=== PATIENT | female | born 1950 | race Caucasian/White ===

== ENCOUNTER 2023-10-02 17:46 | Inpatient (IN) | payer MEDICARE, OTHER ==
[~2023-10-02] VITALS: Ht 162.6 cm; Wt 70.3 kg
[2023-10-02] MEDS ORDERED: DULA1.5P SQ (17:59)
[2023-10-02] MEDS ORDERED: DOXY-326 PO (17:59)
[2023-10-02] MEDS ORDERED: ESTR42.511 VG (17:59)
[2023-10-02] MEDS ORDERED: LANS30CA56 PO (17:59)
[2023-10-02] MEDS ORDERED: ATOR40TA PO (17:59)
[2023-10-02 19:26] LABS: BASOPHILS # (AUTO) 0.1 K/UL (0.0-0.2); BASOPHILS % (AUTO) 0.6 % (0.0-2.0); HEMOGLOBIN 11.7 g/dL (10.9-14.3); LYMPHOCYTES # (AUTO) 1.7 K/uL (0.8-4.8); LYMPHOCYTES % (AUTO) 10.5 % (20.5-51.5); MEAN CORPUSCULAR HEMOGLOBIN 25.7 uug (24.7-32.8); MEAN CORPUSCULAR HGB CONC 32 g/dL (32.3-35.6); MEAN CORPUSCULAR VOLUME 80.8 fL (75.5-95.3); MONOCYTES # (AUTO) 1.2 K/uL (0.1-1.30); MONOCYTES % (AUTO) 7.5 % (0.0-11.0); NEUTROPHILS # (AUTO) 12.8 K/uL (1.8-8.9); NEUTROPHILS % (AUTO) 81.4 % (38.5-71.5); PLATELET COUNT (AUTO) 325 K/uL (179-408); RED BLOOD CELL COUNT(AUTO) 4.57 MIL/uL (3.63-4.92); RED CELL DISTRIBUTION WIDTH 15.9 % (12.3-17.7); WHITE BLOOD COUNT (AUTO) 15.7 K/uL (3.8-11.8)
[2023-10-02 19:32] LABS: DIFFERENTIAL COMMENT 1
[2023-10-02 19:36] LABS: CALCIUM 9.1 mg/dL (8.5-10.1); CARBON DIOXIDE 26 mmol/L (21-32); CHLORIDE 96 mmol/L (98-107); CREATININE 1.4 mg/dL (0.6-1.3); GLUCOSE 312 mg/dL (74-106); POTASSIUM 4.5 mmol/L (3.5-5.1); SODIUM SERUM 132 mmol/L (136-145); UREA NITROGEN, BLOOD 27 mg/dL (7-18)
[2023-10-02] MEDS ORDERED: CEFEPIME HCL 1 G VIAL ONE (19:44)
[2023-10-02 19:45] LABS: ALANINE AMINOTRANSFERASE 8 U/L (14-59); ALBUMIN 2.9 g/dL (3.4-5.0); ALKALINE PHOSPHATASE 110 U/L (50-136); ASPARTATE AMINOTRANSFERASE < 5 U/L (15-37); BILIRUBIN,DIRECT 0.1 mg/dL (0.0-0.2); BILIRUBIN,TOTAL 0.5 mg/dL (0.2-1.0); TOTAL PROTEIN, SERUM 7.8 g/dL (6.4-8.2)
[2023-10-02] MEDS: CEFEPIME HCL 1 G in IV DEXTROSE 5% 50 ML IV ONE (20:05)
[2023-10-02] MEDS: IV NORMAL SALINE 1000 ML BAG IV ONE (20:05)
[2023-10-02] MEDS ORDERED: VANCOMYCIN IV 200 ML ONE (20:18)
[2023-10-02] MEDS: VANCOMYCIN IV 1,000 MG in IV DEXTROSE 5% 250 ML IV ONE (20:24)
[2023-10-02 21:06] LABS: *BILIRUBIN,URIN NEGATIVE (NEGATIVE); *BLOOD, URINE 2+ (NEGATIVE); *CLARITY,URINE CLOUDY (CLEAR); *COLOR,URINE YELLOW (YELLOW); *KETONES,URINE TRACE (NEGATIVE); *PROTEIN,URINE 2+ (NEGATIVE); *UROBILINOGEN,URINE 0.2 E.U./dl (NORMAL); LEUKOCYTE ESTERASE ,URINE 1+ (NEGATIVE); NITRITE, URINE NEGATIVE (NEGATIVE); UGLUCOSE TRACE (NEGATIVE)
[2023-10-02] MEDS ORDERED: ONDANSETRON 4 MG/2 ML VIAL IV PRN (22:15)
[2023-10-02] MEDS ORDERED: HYDROCODONE/APAP 5-325MG TABLET PO PRN (22:15)
[2023-10-02] MEDS ORDERED: DEXTROSE 50% 50 ML DISP.SYRIN IV PRN (22:15)
[2023-10-02] MEDS ORDERED: METF-442 PO (22:43)
[2023-10-02] MEDS ORDERED: GABA-536 PO (22:43)
[2023-10-02] MEDS: ACETAMINOPHEN 325 MG TABLET PO PRN (23:16)
[2023-10-03] MEDS ORDERED: CEFTRIAXONE /D5W 50ML IVPB **ER PYXIS IV ONE (00:03)
[2023-10-03 00:10] VITALS: BP 142/61; TEMP 97.8
[2023-10-03] MEDS: CEFTRIAXONE 1 G in IV DEXTROSE 5% 50 ML IV SCH (00:47)
[2023-10-03 04:00] VITALS: BP 139/51; TEMP 97.5
[2023-10-03 06:13] LABS: BASOPHILS % (AUTO) 0.3 % (0.0-2.0); EOSINOPHILS % (AUTO) 0.1 % (0.0-7.0); HEMOGLOBIN 10.3 g/dL (10.9-14.3); LYMPHOCYTES # (AUTO) 2.2 K/uL (0.8-4.8); LYMPHOCYTES % (AUTO) 14.2 % (20.5-51.5); MEAN CORPUSCULAR HEMOGLOBIN 26.2 uug (24.7-32.8); MEAN CORPUSCULAR HGB CONC 32 g/dL (32.3-35.6); MEAN CORPUSCULAR VOLUME 81.3 fL (75.5-95.3); MONOCYTES # (AUTO) 1.5 K/uL (0.1-1.30); MONOCYTES % (AUTO) 9.2 % (0.0-11.0); NEUTROPHILS % (AUTO) 76.2 % (38.5-71.5); PLATELET COUNT (AUTO) 265 K/uL (179-408); RED BLOOD CELL COUNT(AUTO) 3.94 MIL/uL (3.63-4.92); WHITE BLOOD COUNT (AUTO) 15.7 K/uL (3.8-11.8)
[2023-10-03 06:20] LABS: DIFFERENTIAL COMMENT 1
[2023-10-03 06:36] LABS: THYROID STIMULATING HORMONE 0.942 mIU/mL (0.358-3.740)
[2023-10-03 06:43] LABS: IRON, SERUM 8 ug/dL (50-175)
[2023-10-03] MEDS: BLOOD SUGAR DIAGNOSTIC 1 EACH STRIP VI SCH (06:43)
[2023-10-03 06:45] LABS: ALANINE AMINOTRANSFERASE 9 U/L (14-59); ALBUMIN 2.3 g/dL (3.4-5.0); ALKALINE PHOSPHATASE 87 U/L (50-136); ASPARTATE AMINOTRANSFERASE < 5 U/L (15-37); BILIRUBIN,TOTAL 0.4 mg/dL (0.2-1.0); CALCIUM 8.2 mg/dL (8.5-10.1); CARBON DIOXIDE 26 mmol/L (21-32); CHLORIDE 99 mmol/L (98-107); CHOLESTEROL 101 mg/dL (<200); CREATININE 1.3 mg/dL (0.6-1.3); GLUCOSE 300 mg/dL (74-106); HDL CHOLESTEROL 40 mg/dL (40-60); MAGNESIUM 1.2 mg/dL (1.8-2.4); PHOSPHOROUS 3.3 mg/dL (2.5-4.9); POTASSIUM 3.9 mmol/L (3.5-5.1); SODIUM SERUM 133 mmol/L (136-145); TOTAL PROTEIN, SERUM 6.5 g/dL (6.4-8.2); TRIGLYCERIDES 85 MG/DL (30-150); UREA NITROGEN, BLOOD 23 mg/dL (7-18)
[2023-10-03] MEDS: PANTOPRAZOLE SODIUM 40 MG TABLET.DR PO SCH (06:49)
[2023-10-03] MEDS: ASPIRIN EC 81 MG TABLET.DR PO SCH (08:31)
[2023-10-03] MEDS: INSULIN REGULAR, HUMAN 300 UNIT/3 ML VIAL SQ PRN (08:31)
[2023-10-03] MEDS: MAGNESIUM SULFATE/D5W 100 ML IV SCH (08:32)
[2023-10-03 11:54] VITALS: BP 107/47; TEMP 97.6; O2SAT 97
[2023-10-03] MEDS: MAGNESIUM OXIDE 400 MG TABLET PO SCH (12:30)
[2023-10-03 16:52] VITALS: BP 104/67; TEMP 97.8; O2SAT 98
[2023-10-03] MEDS ORDERED: ERGO50CA PO (17:43)
[2023-10-03] MEDS ORDERED: FOLI1TAB94 PO (17:43)
[2023-10-03] MEDS ORDERED: INSU100C4 SQ (17:44)
[2023-10-03] MEDS: GABAPENTIN 400 MG CAPSULE PO SCH (21:16)
[2023-10-03] MEDS: REMEDY ESSENTIAL ZINC PASTE 113 GM TOP SCH (21:16)
[2023-10-03] MEDS: DOCUSATE SODIUM 100 MG CAPSULE PO SCH (21:16)
[2023-10-03] MEDS: ATORVASTATIN 40 MG TABLET PO SCH (21:16)
[2023-10-03 22:56] VITALS: BP 126/51; TEMP 98.9; O2SAT 98
[2023-10-04 02:59] VITALS: BP 125/44; TEMP 98.9; O2SAT 95
[2023-10-04 04:41] VITALS: BP 143/60; TEMP 98.7; O2SAT 96
[2023-10-04 07:23] LABS: EOSINOPHILS # (AUTO) 0.2 K/uL (0.0-0.7); EOSINOPHILS % (AUTO) 1.3 % (0.0-7.0); HEMATOCRIT 31.6 % (31.2-41.9); HEMOGLOBIN 10.1 g/dL (10.9-14.3); LYMPHOCYTES # (AUTO) 1.5 K/uL (0.8-4.8); LYMPHOCYTES % (AUTO) 12.4 % (20.5-51.5); MEAN CORPUSCULAR HEMOGLOBIN 25.5 uug (24.7-32.8); MEAN CORPUSCULAR HGB CONC 32 g/dL (32.3-35.6); MEAN CORPUSCULAR VOLUME 80.1 fL (75.5-95.3); MONOCYTES # (AUTO) 1.4 K/uL (0.1-1.30); MONOCYTES % (AUTO) 11.5 % (0.0-11.0); NEUTROPHILS % (AUTO) 74.8 % (38.5-71.5); PLATELET COUNT (AUTO) 280 K/uL (179-408); RED BLOOD CELL COUNT(AUTO) 3.95 MIL/uL (3.63-4.92); RED CELL DISTRIBUTION WIDTH 15.8 % (12.3-17.7)
[2023-10-04 07:32] LABS: CALCIUM 8.6 mg/dL (8.5-10.1); CREATININE 1.3 mg/dL (0.6-1.3); MAGNESIUM 2.1 mg/dL (1.8-2.4); POTASSIUM 3.7 mmol/L (3.5-5.1)
[2023-10-04 07:55] LABS: DIFFERENTIAL COMMENT 1
[2023-10-04 07:56] VITALS: BP 132/51; TEMP 98; O2SAT 97
[2023-10-04] MEDS: INSULIN REGULAR, HUMAN 300 UNIT/3 ML VIAL SQ ONE (12:02)
[2023-10-04 12:08] VITALS: BP 121/48; TEMP 97.8; O2SAT 99
[2023-10-04 16:09] VITALS: BP 145/60; TEMP 97.7; O2SAT 99
[2023-10-04 20:17] VITALS: BP 155/61; TEMP 97.4; O2SAT 98
[2023-10-05 00:15] VITALS: BP 120/60; TEMP 97.6; O2SAT 98
[2023-10-05 05:10] VITALS: BP 125/45; TEMP 97.8; O2SAT 95
[2023-10-05 07:10] LABS: BASOPHILS # (AUTO) 0.1 K/UL (0.0-0.2); BASOPHILS % (AUTO) 0.5 % (0.0-2.0); EOSINOPHILS # (AUTO) 0.1 K/uL (0.0-0.7); EOSINOPHILS % (AUTO) 1.1 % (0.0-7.0); HEMATOCRIT 32.1 % (31.2-41.9); HEMOGLOBIN 10.4 g/dL (10.9-14.3); LYMPHOCYTES # (AUTO) 3.2 K/uL (0.8-4.8); LYMPHOCYTES % (AUTO) 32.2 % (20.5-51.5); MEAN CORPUSCULAR HEMOGLOBIN 26.2 uug (24.7-32.8); MEAN CORPUSCULAR HGB CONC 32 g/dL (32.3-35.6); MEAN CORPUSCULAR VOLUME 81.1 fL (75.5-95.3); MONOCYTES # (AUTO) 0.8 K/uL (0.1-1.30); MONOCYTES % (AUTO) 8.6 % (0.0-11.0); NEUTROPHILS # (AUTO) 5.7 K/uL (1.8-8.9); NEUTROPHILS % (AUTO) 57.6 % (38.5-71.5); PLATELET COUNT (AUTO) 200 K/uL (179-408); RED BLOOD CELL COUNT(AUTO) 3.96 MIL/uL (3.63-4.92); RED CELL DISTRIBUTION WIDTH 15.5 % (12.3-17.7); WHITE BLOOD COUNT (AUTO) 9.9 K/uL (3.8-11.8)
[2023-10-05 07:15] LABS: DIFFERENTIAL COMMENT 1
[2023-10-05 07:19] LABS: CALCIUM 8.7 mg/dL (8.5-10.1); CREATININE 1.3 mg/dL (0.6-1.3); POTASSIUM 4.1 mmol/L (3.5-5.1)
[2023-10-05 08:00] VITALS: BP 146/64; TEMP 97.2; O2SAT 97
[2023-10-05] MEDS ORDERED: CEPH500T PO (10:09)
[2023-10-05 12:00] VITALS: BP 126/48; TEMP 98.3; O2SAT 97
[2023-10-05 16:00] VITALS: BP 113/46; TEMP 97.6; O2SAT 97
== END 2023-10-05 18:36 | disposition home health service (06) | DRG 871 ==
LOC: ER 17:48 → TELE3 23:49
PROVIDERS: ADMIT Internal Medicine; ATTEND Internal Medicine
PROC: 05HB33Z Insertion of Infusion Device into Right Basilic Vein, Percutaneous Approach (ICD-10-PCS; principal; 2023-10-03)
DX: A41.50 Gram-negative sepsis, unspecified (principal); E43 Unspecified severe protein-calorie malnutrition; G93.41 Metabolic encephalopathy; I21.A1 Myocardial infarction type 2; N17.0 Acute kidney failure with tubular necrosis; N39.0 Urinary tract infection, site not specified; Q60.0 Renal agenesis, unilateral; R79.89 Other specified abnormal findings of blood chemistry; E11.22 Type 2 diabetes mellitus with diabetic chronic kidney disease; N18.9 Chronic kidney disease, unspecified; R65.20 Severe sepsis without septic shock; E11.51 Type 2 diabetes mellitus with diabetic peripheral angiopathy without gangrene; I12.9 Hypertensive chronic kidney disease with stage 1 through stage 4 chronic kidney disease, or unspecified chronic kidney disease; N18.2 Chronic kidney disease, stage 2 (mild); E78.5 Hyperlipidemia, unspecified; Z86.73 Personal history of transient ischemic attack (TIA), and cerebral infarction without residual deficits; D50.9 Iron deficiency anemia, unspecified; Z95.5 Presence of coronary angioplasty implant and graft; I25.10 Atherosclerotic heart disease of native coronary artery without angina pectoris; Z79.84 Long term (current) use of oral hypoglycemic drugs; Z79.899 Other long term (current) drug therapy
CPT/HCPCS: 36415; 70450; 71045; 83550; 83605; 83735; 84100; 84443; 84484; 85025; 85730; 86850; 86900; 86901; 87040; 93005; 93307; A4606; A4663; A6213; G0378; J0692; J0696; J1815; J3370; J3475; J7040